=== PATIENT | female | born 1955 | race American Indian/Alaskan Native ===

== ENCOUNTER 2018-02-03 08:11 | Outpatient (CLI) | payer BC ==
--- NOTE | 2018-02-03 10:58 | ULT ---
RIGHT UPPER QUADRANT ULTRASOUND: 02/03/2018 PROVIDED CLINICAL HISTORY: Right upper quadrant pain. FINDINGS: The visualized IVC and pancreas appear normal. The liver demonstrates no mass or intrahepatic biliar y ductal dilatation. There is diffusely increased echogenicity of the hepatic parenchyma, compatible with fatty infiltration. The common duct is not dilated. The gallbladder demonstrates no stones, w all thickening, or pericholecystic fluid. The right kidney demonstrates no hydronephrosis or mass. IMPRESSION: Fatty infiltration of the liver. POS: [facility]
== END 2018-02-03 08:12 | disposition home or self-care (01) ==
LOC: SCSULT 08:11
PROVIDERS: ATTEND Internal Medicine Gastroenterology
DX: R10.11 Right upper quadrant pain (principal); K62.5 Hemorrhage of anus and rectum; K76.0 Fatty (change of) liver, not elsewhere classified
CPT/HCPCS: 76705

== ENCOUNTER 2018-05-17 09:36 | Outpatient (CLI) | payer BC ==
--- NOTE | 2018-05-17 10:44 | BD ---
BONE DENSITOMETRY USING DEXA: HISTORY: Postmenopausal screening for osteoporosis. LUMBAR SPINE BMD (g/cm2) T-SCORE Z-SCORE L1 0.738 -2.3 -0.9 L2 0.764 -2.4 -0.9 L3 0.735 -3.2 -1.6 L4 0.729 -3.0 -2.4 TOTAL 0.741 -2.8 -1.3 NECK 0.691 -1.4 -0.1 TOTAL 0.838 -0.9 0.2 IMPRESSION: Osteoporosis. POS: [facility]
== END 2018-05-17 09:37 | disposition home or self-care (01) ==
LOC: BICMAMMO 09:36
PROVIDERS: ATTEND Internal Medicine Rheumatology
DX: M81.0 Age-related osteoporosis without current pathological fracture (principal); Z79.899 Other long term (current) drug therapy
CPT/HCPCS: 77080

== ENCOUNTER 2019-10-25 09:23 | Outpatient (CLI) | payer BC ==
--- NOTE | 2019-10-25 10:05 | ULT ---
Exam: Right upper quadrant ultrasound: HISTORY: Bilateral quadrant pain COMPARISON: 02/03/2018 FINDINGS: Visualized liver:Heterogeneous liver echogenicity evidence for nonspecific hepatic parenchymal proces s including fatty infiltration. Gallbladder:No evidence of gallstones, wall thickening, edema, or pericholecystic fluid. Common bile duct:Within normal limits. The visualized pancreas and right kidney are unremarkable. No evidence for abscess or abnormal fluid collection in the right upper quadrant. IMPRESSION: Coarse liver heterogeneous echogenicity, stable. No evidence of gallstones. Negative Sosa's sign.
== END 2019-10-25 09:24 | disposition home or self-care (01) ==
LOC: SCSULT 09:23
PROVIDERS: ATTEND Family Medicine
DX: R10.11 Right upper quadrant pain (principal); K76.9 Liver disease, unspecified
CPT/HCPCS: 76705

== ENCOUNTER 2020-07-19 09:19 | Outpatient (CLI) | payer BC | END 2020-07-19 09:20 | disposition home or self-care (01) | LOC: BICMAMMO 09:19 | PROVIDERS: ATTEND Internal Medicine Rheumatology | DX: M81.0 Age-related osteoporosis without current pathological fracture (principal); M85.89 Other specified disorders of bone density and structure, multiple sites | CPT/HCPCS: 77080 ==

== ENCOUNTER 2021-08-06 10:36 | Outpatient (CLI) | payer BC | END 2021-08-06 10:37 | disposition home or self-care (01) | LOC: BICMAMMO 10:36 | PROVIDERS: ATTEND Internal Medicine Rheumatology | DX: M81.0 Age-related osteoporosis without current pathological fracture (principal); M85.88 Other specified disorders of bone density and structure, other site | CPT/HCPCS: 77080 ==

== ENCOUNTER 2022-08-21 09:57 | Outpatient (CLI) | payer BC | END 2022-08-21 09:58 | disposition home or self-care (01) | LOC: BICMAMMO 09:57 | PROVIDERS: ATTEND Internal Medicine Rheumatology | DX: M81.0 Age-related osteoporosis without current pathological fracture (principal); M85.851 Other specified disorders of bone density and structure, right thigh | CPT/HCPCS: 77080 ==

== ENCOUNTER 2023-09-16 10:02 | Outpatient (CLI) | payer BC | END 2023-09-16 10:03 | disposition home or self-care (01) | LOC: BICMAMMO 10:02 | PROVIDERS: ATTEND Internal Medicine Rheumatology | DX: M81.0 Age-related osteoporosis without current pathological fracture (principal); M17.0 Bilateral primary osteoarthritis of knee; Z79.899 Other long term (current) drug therapy; M85.89 Other specified disorders of bone density and structure, multiple sites | CPT/HCPCS: 77080 ==